=== PATIENT | female | born 1985 | race Caucasian/White ===

== ENCOUNTER 2017-04-30 04:01 | Emergency (ER) | payer MEDICAID ==
--- NOTE | 2017-04-30 05:27 | ER Document Report ---
ED General - General Chief Complaint: Vaginal Bleeding Stated Complaint: VAGINAL BLEEDING Time Seen by Provider: 04/30/17 04:16 Notes: Patient is a 31-year-old female presents with complaint of vaginal bleeding in . This is her fourth . Her previous 3 pregnancies went onto normal vaginal deliveries without any complications. She said she start bleeding tonight. She says started as spotting and then progressed to continuous bleeding. No clots. No abnormal passage of tissue. No abnormal discharge or fevers. She said she has had some mild morning sickness but no significant vomiting. She is taking vitamins. She denies taking any other medications other than prenatals. She has no other complaints at this time. She denies any associated abdominal pain. TRAVEL OUTSIDE OF THE [place] IN LAST 30 DAYS: No - Related Data Allergies/Adverse Reactions: No Known Allergies Allergy (Verified 04/30/17 04:01) Past Medical History - Social History Smoking Status: Never Smoker Frequency of alcohol use: None Drug Abuse: None Family History: Reviewed & Not Pertinent Patient has suicidal ideation: No Patient has homicidal ideation: No Renal/ Medical History: Denies: Hx Peritoneal Dialysis - Immunizations Hx Diphtheria, Pertussis, Tetanus Vaccination: Yes Review of Systems - Review of Systems Notes: My Normal Review Basic REVIEW OF SYSTEMS: CONSTITUTIONAL : Denies fever, chills, or sweats. Denies recent illness. EENT: Denies eye, ear, throat, or mouth pain or symptoms. Denies nasal or sinus congestion. RESPIRATORY: Denies cough, cold, or chest congestion. Denies shortness of breath, difficulty breathing, or wheezing. GASTROINTESTINAL: Denies abdominal pain. Some nausea. Denies constipation. Last BM: GENITOURINARY: Denies difficulty urinating, painful urination, burning, frequency, or blood in urine. FEMALE GENITOURINARY: Vaginal bleeding in . LMP: MUSCULOSKELETAL: Denies neck or back pain or joint pain or swelling. SKIN: Denies rash or skin lesions.. NEUROLOGICAL: Denies altered mental status or loss of consciousness. Denies headache. Denies weakness or paralysis or loss of use of either side. Denies problems with gait or speech. Denies sensory or motor loss. ALL OTHER SYSTEMS REVIEWED AND NEGATIVE. Physical Exam - Vital signs Vitals: Temp Pulse Resp BP Pulse Ox 98.2 F 61 18 115/62 100 04/30/17 04:01 04/30/17 04:01 04/30/17 04:01 04/30/17 04:01 04/30/17 04:01 - Notes Notes: General Appearance: Well nourished, alert, cooperative, no acute distress, no obvious discomfort. Well-appearing. Vitals: reviewed, See vital signs table. Lungs: No wheezing, No rales, No rhonci, No accessory muscle use, good air exchange bilaterally. Heart: Normal rate, Regular rythm, No murmur, no rub Abdomen: Normal BS, soft, No rigidity, No producible abdominal tenderness palpation, No guarding, no rebound, Genital: Normal external genitalia. Small amount of blood in vaginal vault. No clots in cervical os. Cervical os is closed. Extremities: strength 5/5 in all extremities, good pulses in all extremities, no swelling or tenderness in the extremities, no edema. Skin: warm, dry, appropriate color, no rash Neuro: speech clear, oriented x 3, normal affect, responds appropriately to questions. Course - Re-evaluation Re-evalutation: 04/30/17 05:51 Patient has a negative blood test. I informed her that it is unlikely that she was actually when her hCG is nondetectable and her blood. I told her there is still a possibility that she could have been only a few days and had a miscarriage but still this is unlikely. She then informs me that for the last several months she will have a positive test and have a normal menstrual period right afterwards. Informed her she needs to follow-up with her senior biostatistician about this and talk to them about whether or not any further testing being that they are trying to get or look for the precautions that should take. I encouraged her return to ER immediately if she has heavy bleeding, abdominal pain, fevers, or feels unwell. Patient agrees with plan will be discharged home. Dictation of this chart was performed using voice recognition software; therefore, there may be some unintended grammatical errors. - Vital Signs Vital signs: Temp Pulse Resp BP Pulse Ox 98.2 F 61 18 115/62 100 04/30/17 04:01 04/30/17 04:01 04/30/17 04:01 04/30/17 04:01 04/30/17 04:01 Discharge - Discharge Clinical Impression: Vaginal bleeding Condition: Good Disposition: HOME, SELF-CARE Additional Instructions: Your test today is negative. Please follow up with your [facility] physician and talk to them about the fact that you continue to have positive normal tests and than have a normal period followed by a negative blood test. Please return to the ER if you have heavy vaginal bleeding , fevers, or feel unwell. Referrals: THERESA GRAYSON MD [ACTIVE STAFF] - 05/07/17
--- NOTE | 2017-04-30 05:37 | RADIOLOGY REPORT (SQ) ---
EXAM DESCRIPTION: U/S OB TRANSVAG W/DOPPLER CLINICAL HISTORY: 31 years, Female, bleeding in COMPARISON: None. TECHNIQUE: Transvaginal. LIMITATIONS: None. FINDINGS: No intrauterine gestation identified. 8.5 cm uterus, 2.4 cm cervical length, and 0.8 cm endometrial stripe thickness with nongravid appearance, 4.3 cm right ovary, and 4.0 cm left ovary appear otherwise unremarkable in size, shape, echotexture, and vascularity. No significant free fluid. IMPRESSION: No intrauterine gestation identified. Differential diagnosis includes occult early viable , gestational loss, and occult ectopic gestation. Consider serial laboratory/sonographic correlation. 2011 [employer]- All Rights Reserved
[2017-04-30 05:56] VITALS: BP 125/67
== END 2017-04-30 06:05 | disposition home or self-care (01) ==
LOC: ER 04:01
DX: N93.8 Other specified abnormal uterine and vaginal bleeding (principal)
CPT/HCPCS: 36415; 76817; 84703; 86900; 86901; 93976; 99284